=== PATIENT | female | born 1980 | race Caucasian/White ===

== ENCOUNTER 2024-10-11 11:28 | Emergency (ER) | payer MEDICARE, OTHER ==
[~2024-10-11] VITALS: Ht 167.6 cm; Wt 95.0 kg
[2024-10-11 11:40] VITALS: TEMP 98.6
[2024-10-11] MEDS ORDERED: SIMV5TAB58 PO (11:40)
[2024-10-11] MEDS ORDERED: CYAN500T46 PO (11:40)
[2024-10-11] MEDS ORDERED: CHOL500045 PO (11:40)
[2024-10-11] MEDS ORDERED: LEVO25TA9 PO (11:40)
[2024-10-11 13:29] LABS: BASOPHILS % (AUTO) 0.4 % (0.0-2.0); EOSINOPHILS % (AUTO) 0.2 % (1.0-6.0); HEMATOCRIT 38.6 % (36-46); HEMOGLOBIN 12.7 g/dL (12.0-16.0); LYMPHOCYTES # (AUTO) 1.6 K/uL (1.0-4.8); LYMPHOCYTES % (AUTO) 11.9 % (22.0-44.0); MEAN CORPUSCULAR HEMOGLOBIN 27.8 pg (26.0-34.0); MEAN CORPUSCULAR HGB CONC 32.9 G/dL (31.0-37.0); MEAN CORPUSCULAR VOLUME 85 fL (80-100); MONOCYTES # (AUTO) 0.7 K/uL (0.1-1.0); MONOCYTES % (AUTO) 5.4 % (2.0-9.0); NEUTROPHILS % (AUTO) 82.1 % (40.0-70.0); PLATELET COUNT (AUTO) 231 K/uL (150-450); RED BLOOD CELL COUNT(AUTO) 4.56 MIL/uL (4.00-5.20); RED CELL DISTRIBUTION WIDTH 13.9 % (11.5-14.5); WHITE BLOOD COUNT (AUTO) 13.4 K/uL (4.5-11.0)
[2024-10-11 13:39] LABS: ANION GAP 7 mmol/L (8-16); CALCIUM, TOTAL 8.3 mg/dL (8.8-10.5); CARBON DIOXIDE 25 mmol/L (22-29); CHLORIDE 106 mmol/L (98-107); CREATININE 0.94 mg/dL (0.60-1.30); GLOMERULAR FILTR. RATE CALC > 60 mL/min (>60); GLUCOSE,RANDOM 109 mg/dL (70-110); POTASSIUM 4.4 mmol/L (3.5-5.1); SODIUM SERUM 138 mmol/L (136-145); UREA NITROGEN, BLOOD 20 mg/dL (7-18)
[2024-10-11 13:49] LABS: PROTHROMBIN TIME 10.9 SEC (9.4-11.6)
[2024-10-11] MEDS: MORPHINE SULFATE 2 MG/ML SYRINGE IVP ONE (14:33)
[2024-10-11] MEDS: MIDAZOLAM HCL 2 MG/2 ML VIAL IVP ONE (15:31)
[2024-10-11] MEDS: SODIUM CHLORIDE 0.9% 1,000 ML IV ONE (17:18)
[2024-10-11] MEDS: ONDANSETRON HCL 4 MG/2 ML VIAL IVP ONE (17:18)
[2024-10-11 17:21] VITALS: BP 99/56; PULSE 80; RESP 18; O2SAT 97
[2024-10-11] MEDS ORDERED: ACET-3385 PO (18:53)
[2024-10-11] MEDS ORDERED: OXYC5 PO (18:53)
[2024-10-11] MEDS ORDERED: IBUP-1492 PO (18:53)
== END 2024-10-11 22:06 | disposition home or self-care (01) ==
LOC: EMS 11:28
DX: S82.891A Other fracture of right lower leg, initial encounter for closed fracture (principal); E78.00 Pure hypercholesterolemia, unspecified; E03.9 Hypothyroidism, unspecified; Z98.890 Other specified postprocedural states; Z79.890 Hormone replacement therapy; X50.1XXA Overexertion from prolonged static or awkward postures, initial encounter; Y93.89 Activity, other specified; Y92.89 Other specified places as the place of occurrence of the external cause; Y99.8 Other external cause status
CPT/HCPCS: 99284; 27840; 96374; 96375; 96361; 80048; 84703; 85025; 85610; 85730; 36415; 73590; 73610; J2250; J2270; J2405; J7030